=== PATIENT | male | born 1980 | race Caucasian/White ===

== ENCOUNTER 2023-04-11 15:05 | Emergency (ER) | payer OTHER ==
[2023-04-11 15:13] VITALS: BP 131/75; PULSE 82; RESP 18; TEMP 97.9; BMI 47.9
== END 2023-04-11 17:02 | disposition home or self-care (01) ==
LOC: JER 15:05
DX: R10.11 Right upper quadrant pain (principal); K76.0 Fatty (change of) liver, not elsewhere classified
CPT/HCPCS: 76705-TC; 99284-25